=== PATIENT | male | born 1945 | race Caucasian/White ===

== ENCOUNTER 2018-03-10 07:57 | Inpatient (IN) ==
--- NOTE | 2018-01-05 12:28 | Anesthesiology Consultation ---
Date of Service January 05, 2018 Assessment & Plan (1) Encounter for pre-operative examination: Chart Review Chart Review: Acceptable Risk for Surgery and Patient seen in Pre Admission Testing Consults Requested none Teaching & Discussion Pre-Anesthesia Teaching/Discussion Notes: Instructed NPO after midnight before surgery,except medications with 15 cc of water. Medication instructions provided according to the PAT guidelines. Additional Notes Cleared if PCP reviews EKG and says that it is consistent with old ones. Note sent to PCP. Update: These are new findings. Pt scheduled for stress test on 01/14. Update: Patients surgery is cancelled so that patient can undergo cardiac workup. Can be rescheduled at a later date if desired once cleared from a cardiac standpoint. History Surgery Operation Date: 01/15/18 11:55 Proposed Procedures p L2-L5 Decompression and Fusion - Pineda Amanda DO Height/Weight Height: 5 ft 10 in Weight: 106.3 kg Allergies Allergy/AdvReac Type Severity Reaction Status Date / Time No Known Allergies Allergy Verified 12/30/17 12:05 Medications Home Medications Medication Instructions Recorded Confirmed Last Taken amlodipine 10 mg PO QAM 12/30/17 12/30/17 12/30/17 aspirin [Aspir-81] 81 mg PO QPM 12/30/17 12/30/17 12/29/17 atorvastatin 10 mg PO QPM 12/30/17 12/30/17 12/29/17 canagliflozin [Invokana] 300 mg PO QAM 12/30/17 12/30/17 12/30/17 ergocalciferol (vitamin D2) 50,000 unit PO UD 12/30/17 12/30/17 Unknown [Vitamin D2] glipizide 10 mg PO QAM 12/30/17 12/30/17 12/30/17 hydrochlorothiazide 25 mg PO QAM 12/30/17 12/30/17 12/30/17 insulin detemir U-100 20 unit SUBCUT HS 12/30/17 12/30/17 12/29/17 irbesartan 300 mg PO HS 12/30/17 12/30/17 12/29/17 metformin 1,000 mg PO BID 12/30/17 12/30/17 12/30/17 metoprolol succinate 50 mg PO QAM 12/30/17 12/30/17 12/30/17 multivitamin [Multiple Vitamins] 1 tab PO QAM 12/30/17 12/30/17 12/30/17 vitamin F59-gmxgv acid 1 dose PO QPM 12/30/17 12/30/17 12/29/17 Past Medical History Medical History Diabetes mellitus, type 2 History of colon cancer Dx in 2010. Had hemicolectomy and chemo. Currently in remission. History of stomach ulcers Hyperlipidemia Hypertension Osteoarthritis Spinal stenosis LUMBAR Past Surgical History Surgical History History of anesthesia reaction WOKE UP EARLY WITH CATARACT PROCEDURE AND COLONOSCOPY ([facility] COLONOSCOPY/DR EL FOURNIER CATARACTS) History of hemicolectomy Hx of appendectomy Hx of bilateral cataract extraction Hx of cardiac cath 1992/CHEST PAIN/NO FINDINGS Hx of colonoscopy Past Anesthesia History No Hx of Anesthesia Complications (Did wake up early during sedation procedures. ) No family history of anesthesia complications. History of PONV No Motion Sickness Screening History of Motion Sickness: Yes ([place] on [place] boats on the ocean) Social History Smoking Status: Former smoker (Smoked 2 ppd x 30+ years) tobacco type: cigarettes Do You Dip or Chew Tobacco: No ([id number]) Smoking End Date: QUIT 1993 Hx Alcohol Use: Yes Alcohol type: beer alcohol intake frequency: 3 or more drinks per day Alcohol Intake Frequency Comment: 4-6 PER DAY Hx Substance Use: No substance use type: does not use Exercise / Class Metabolic Activity II 4-5 Yardwork/Stairs/Walk up hill (Limited because of back pain. 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 Denies CP or SOB. Able to climb FOS without difficulty. ) Review of Systems Patient denies chest pain, shortness of breath, dyspnea on exertion, reflux, cough, wheezing, palpitations. Physical Exam Vital Signs BP: 131/73 P: 86 R: 16 T: 98.4 SPO2: 97% on RA ENMT external ear and nose normal, oropharynx normal Thyromental Distance: < 3.5 Finger Breadths (3) Mallampati Class: III Mouth / Teeth: 2 1. Upper and Lower Dentures Throat: uvula midline Neck normal visual inspection and trachea midline Respiratory normal respiratory effort, lungs clear to auscultation Cardiovascular Rate/Rhythm: regular rate and regular rhythm Heart Sounds: no murmur Vessels: no carotid bruit Psychiatric A+Ox3, euthymic affect Testing Laboratory Results 01/05/18 13:24 01/05/18 13:24 Blood Type A Positive 01/05/18 13:24 Antibody Screen NEGATIVE 01/05/18 13:24 PT 10.0 Seconds (9.0-12.0) 01/05/18 13:24 INR 1.0 (0.9-1.1) 01/05/18 13:24 APTT 26.0 Seconds (21.0-31.0) 01/05/18 13:24 Urine Color Yellow 01/05/18 13:24 Urine Appearance Clear (Clear) 01/05/18 13:24 Urine pH 5.5 (4.5-7.5) 01/05/18 13:24 Ur Specific [place] 1.025 (1.000-1.030) 01/05/18 13:24 Urine Protein Negative (Negative) 01/05/18 13:24 Urine Glucose (UA) 3+ (Negative) H 01/05/18 13:24 Urine Ketones Negative (Negative) 01/05/18 13:24 Urine Nitrite Negative (Negative) 01/05/18 13:24 Ur Leukocyte Esterase Negative (Negative) 01/05/18 13:24 Electrocardiogram Date: 01/05/18 Sinus rhythm @ 85 bpm with 1st degree AV block. T wave abnormality, consider inferior ischemia. Chest X-Ray Date: 01/05/18 Findings: + NAD
--- NOTE | 2018-01-05 12:34 | PAT Medication Instructions ---
Medication Instructions Date of Service January 05, 2018 Home Medications amlodipine 10 mg PO QAM aspirin [Aspir-81] 81 mg PO QPM atorvastatin 10 mg PO QPM canagliflozin [Invokana] 300 mg PO QAM ergocalciferol (vitamin D2) 50,000 unit PO DIRECTED glipizide 10 mg PO QAM hydrochlorothiazide 25 mg PO QAM insulin detemir U-100 20 unit SUBCUT HS irbesartan 300 mg PO HS metformin 1,000 mg PO BID metoprolol succinate 50 mg PO QAM multivitamin [Multiple Vitamins] 1 tab PO QAM vitamin D84-wglkb acid 1 dose PO QPM Check with MD/Surgeon-instructions aspirin [Aspir-81] 81 mg PO QPM Hold the morning of surgery ergocalciferol (vitamin D2) 50,000 unit PO DIRECTED glipizide 10 mg PO QAM hydrochlorothiazide 25 mg PO QAM canagliflozin [Invokana] 300 mg PO QAM metformin 1,000 mg PO BID multivitamin [Multiple Vitamins] 1 tab PO QAM Take morning of surgery Take with a sip of water, OTHERWISE NOTHING TO EAT OR DRINK AFTER MIDNIGHT: amlodipine 10 mg PO QAM metoprolol succinate 50 mg PO QAM Take evening before surgery atorvastatin 10 mg PO QPM insulin detemir U-100 20 unit SUBCUT HS irbesartan 300 mg PO HS metformin 1,000 mg PO BID vitamin D22-qivgj acid 1 dose PO QPM Other Notes If you have any questions please call us at [phone] or [phone] or [phone] or [phone]
--- NOTE | 2018-01-05 13:56 | XRay Report ---
XR chest Pre-admission PA/Lat CLINICAL HISTORY: Preoperative chest COMPARISON STUDY: No previous studies for comparison. FINDINGS: The cardiac and mediastinal contours are normal. There is no evidence of focal pulmonary co nsolidation. There is no evidence of failure. No pleural effusions are visualized.[ IMPRESSION: No active disease in the chest. Electronically signed by: Luis Contreras M.D. 01/05/2018 1:54 PM
[2018-01-05 14:25] LABS: Basophils # (auto) 0.02 K/uL (0-0.2); Basophils % (auto) 0.3 %; Eosinophils # (auto) 0.17 K/uL (0-0.5); Eosinophils % (auto) 2.8 %; Hematocrit (blood only) 43.8 % (42-52); Hemoglobin 14.6 g/dL (14.0-18.0); Immature Granulocytes # (auto) 0.01 K/uL (0.00-0.02); Immature Granulocytes % (auto) 0.2 %; Lymphocytes # (auto) 1.85 K/uL (1.2-3.4); Lymphocytes % (auto) 30.5 %; Mean Corpuscular Hgb Conc 33.3 g/dL (32-36); Mean Corpuscular Volume 92.2 fL (80-100); Mean Platelet Volume 10.1 fL (7.4-10.4); Monocytes # (auto) 0.68 K/uL (0.11-0.59); Monocytes % (auto) 11.2 %; Neutrophils # (auto) 3.33 K/uL (1.4-6.5); Platelet Count 191 K/uL (130-400); RDW Coefficient of Variation 13.6 % (11.5-14.5); RDW Standard Deviation 46.1 fL (36.4-46.3); Red Blood Count 4.75 M/uL (4.7-6.1); White Blood Count 6.06 K/uL (4.8-10.8)
[2018-01-05 14:26] LABS: BUN Creatinine Ratio 14.2 (10-20); Calcium 8.9 mg/dl (8.5-10.1); Creatinine Clr Calc Pharmacy 56.6 ml/min; Est GFR (African American) 55.8; Est GFR (Non-African American) 48.2; Potassium 4.5 mmol/L (3.5-5.1)
[2018-01-05 14:32] LABS: Appearance Urine Clear (Clear); Bilirubin Urine Negative (Negative); Color Urine Yellow; Glucose Urine UA 3+ (Negative); Ketones Urine Negative (Negative); Leukocyte Esterase Urine Negative (Negative); Nitrite Urine Negative (Negative); Protein Urine Negative (Negative); Specific Gravity Urine 1.025 (1.000-1.030); Urobilinogen Urine Negative (Negative); pH Urine 5.5 (4.5-7.5)
[~2018-03-10 07:57] MED LIST: ACETAMINOPHEN 500 MG TAB PO SCH; CEFAZOLIN 2000MG 2,000 MG/15 ML SYR IV SCH; CeleBREX 200 MG CAP PO SCH; GABAPENTIN 300 MG PO SCH; LR 15ML/HR IV SCH
[2018-03-10] MEDS ORDERED: MIDAZOLAM HCL 1 MG/ML 2ML VIAL ONE (08:10)
[2018-03-10] MEDS ORDERED: HYDROmorphone INJ 2 MG/ML SYR/VIAL ONE ×3 (08:11→10:49)
[2018-03-10] MEDS ORDERED: fentaNYL citrate 100 MCG/2 ML VIAL ONE ×7 (08:11→12:37)
[2018-03-10 08:57] LABS: Basophils # (auto) 0.02 K/uL (0-0.2); Basophils % (auto) 0.3 %; Eosinophils # (auto) 0.27 K/uL (0-0.5); Eosinophils % (auto) 4.1 %; Hematocrit (blood only) 44.8 % (42-52); Hemoglobin 15.1 g/dL (14.0-18.0); Lymphocytes # (auto) 1.81 K/uL (1.2-3.4); Lymphocytes % (auto) 27.7 %; Mean Platelet Volume 9.6 fL (7.4-10.4); Monocytes # (auto) 0.78 K/uL (0.11-0.59); Monocytes % (auto) 11.9 %; Neutrophils # (auto) 3.66 K/uL (1.4-6.5); Platelet Count 177 K/uL (130-400); RDW Coefficient of Variation 13.4 % (11.5-14.5); RDW Standard Deviation 45.1 fL (36.4-46.3); Red Blood Count 4.87 M/uL (4.7-6.1); White Blood Count 6.54 K/uL (4.8-10.8)
[2018-03-10] MEDS ORDERED: NEOSTIGMINE METHYLSULFATE 1 MG/ML 10ML VIAL ONE (09:04)
[2018-03-10] MEDS ORDERED: PROPOFOL IV EMULSION 10 MG/ML 20 ML VIAL IV ONE (09:04)
[2018-03-10] MEDS ORDERED: DEXAMETHASONE SOD INJ 4 MG/ML VIAL ONE (09:04)
[2018-03-10] MEDS ORDERED: LARYING-O-JET KIT (LTA) ONE (09:04)
[2018-03-10] MEDS ORDERED: GLYCOPYRROLATE 0.2 MG/ML VIAL ONE (09:04)
[2018-03-10] MEDS ORDERED: LIDOCAINE HCL 2% 2 ML VIAL/AMP(20MG/ML) INFIL ONE (09:04)
[2018-03-10] MEDS ORDERED: ONDANSETRON INJ 2 MG/ML 2 ML VIAL ONE (09:04)
[2018-03-10 09:06] LABS: Partial Thromboplastin Time 25.9 Seconds (21.0-31.0); Prothrombin Time 10.1 Seconds (9.0-12.0)
[2018-03-10 09:07] LABS: Mean Corpuscular Hgb Conc 33.7 g/dL (32-36)
--- NOTE | 2018-03-10 09:09 | History & Physical Bridge Note ---
Date of Service March 10, 2018 History & Physical Bridge Note I have examined the patient, reviewed the History & Physical and in the interval since the performance of the History & Physical I have noted the following changes of clinical significance: no changes noted
--- NOTE | 2018-03-10 09:10 | History & Physical Report ---
Date of Service March 10, 2018 Assessment & Plan (1) Neurogenic claudication due to lumbar spinal stenosis: Decompression and fusion L2-5 Present on Admission?: Yes History of Present Illness Chief Complaint: Back and leg pain Primary Care Provider: Atiya Lopez MD This is a 72-year-old male presents with chronic persistent back and leg pain. After failing extensive course of nonoperative care is here for surgical intervention. Allergies Allergy/AdvReac Type Severity Reaction Status Date / Time No Known Allergies Allergy Verified 03/10/18 08:33 Home Medications Home Medications Medication Instructions Recorded Confirmed Type amlodipine 10 mg PO QAM 18 02/18/18 History aspirin [Aspir-81] 81 mg PO QPM 12/30/17 03/10/18 History atorvastatin 10 mg PO QPM 12/30/17 02/18/18 History canagliflozin [Invokana] 300 mg PO QAM 12/30/17 03/10/18 History ergocalciferol (vitamin D2) 50,000 unit PO UD 12/30/17 03/10/18 History [Vitamin D2] glipizide 10 mg PO QAM 12/30/17 03/10/18 History hydrochlorothiazide 25 mg PO QAM 18 03/10/18 History insulin detemir U-100 20 unit SUBCUT HS 12/30/17 03/10/18 History irbesartan 300 mg PO HS 12/30/17 03/10/18 History metformin 1,000 mg PO BID 12/30/17 03/10/18 History metoprolol succinate 100 mg PO QAM 12/30/17 03/10/18 History multivitamin [Multiple Vitamins] 1 tab PO QAM 12/30/17 03/10/18 History vitamin N26-macci acid 1 dose PO QPM 12/30/17 03/10/18 History Past Med/Surg History Social History Current Living Situation: Spouse Other Information That Helps Us Care for You: No Feels Safe at Home: Yes Safety Concerns: Feels Safe At This Time Smoking Status: Former smoker Tobacco Type: cigarettes Do You Dip or Chew Tobacco: No ([id number]) Smoking End Date: QUIT 1993 Second Hand Exposure: No Tobacco Cessation Education Requested by Patient: No Hx Alcohol Use: Yes Alcohol type: beer Alcohol Intake Frequency: 3 or more drinks per day Hx Substance Use: No Beliefs That Will Affect Care: Judaism Judaism Beliefs: RESTORATION Preferred Language: Greek Communication Ability: Effective Communication Ability Comment: HARD OF HEARING Insurance Territory Manager Required: No Physical Exam 2 Vital Signs (Past 24 Hours): Last Vital Signs Temp 36.9 C 03/10/18 08:46 Pulse 83 03/10/18 08:46 Resp 16 03/10/18 08:46 BP 169/70 H 03/10/18 08:46 Pulse Ox 96 03/10/18 08:46 Results & Data Medications Administered Acetaminophen (Tylenol) 1,000 mg PO PREOP COURTNEY Stop: 03/10/18 18:00 Last Admin: 03/10/18 09:02 Dose: 1,000 mg Celecoxib (Celebrex) 200 mg PO PREOP COURTNEY Stop: 03/10/18 18:00 Last Admin: 03/10/18 09:02 Dose: 200 mg Gabapentin (Neurontin) 300 mg PO PREOP COURTNEY Stop: 03/10/18 18:00 Last Admin: 03/10/18 09:02 Dose: 300 mg Lactated Ringer's (Lr) 1,000 mls @ 15 mls/hr IV .Q24H COURTNEY Stop: 03/11/18 05:59 Last Admin: 03/10/18 09:03 Dose: 15 mls/hr
[2018-03-10 09:13] LABS: BUN Creatinine Ratio 23.7 (10-20); Calcium 9.5 mg/dl (8.5-10.1); Creatinine Clr Calc Pharmacy 56.9 ml/min; Est GFR (African American) 56.8; Potassium 4.4 mmol/L (3.5-5.1)
[2018-03-10] MEDS ORDERED: PROMETHAZINE HCL 6.25 MG in SODIUM CHLORIDE 0.9% 50 ML IV PRN (09:16)
[2018-03-10] MEDS ORDERED: ePHEDrine sulfate 50 MG/ML AMP IV PRN (09:16)
[2018-03-10] MEDS ORDERED: fentaNYL citrate 100 MCG/2 ML VIAL IV PRN (09:16)
[2018-03-10] MEDS ORDERED: ATROPINE SULFATE 0.1 MG/ML 5ML SYR IV PRN (09:16)
[2018-03-10] MEDS ORDERED: ONDANSETRON INJ 2 MG/ML 2 ML VIAL IV PRN ×2 (09:16→14:22)
[2018-03-10] MEDS ORDERED: HYDROmorphone INJ 2 MG/ML SYR/VIAL IV PRN (09:16)
[2018-03-10] MEDS ORDERED: BACITRACIN INJ 50,000 UNIT VIAL ONE (09:28)
[2018-03-10] MEDS ORDERED: BUPIVACAINE/EPINEPHRINE 0.5% MPF 1:200,000 30 ML VIAL ONE (09:28)
[2018-03-10] MEDS ORDERED: FLOSEAL HEMOSTATIC MATRIX 10ML TOP ONE (10:20)
[2018-03-10] MEDS ORDERED: ALBUMIN HUMAN 5% 12.5 GM/250 ML VIAL IV ONE (10:49)
[2018-03-10] MEDS ORDERED: ePHEDrine sulfate 50 MG/ML SYR ONE (10:57)
[2018-03-10] MEDS ORDERED: PHENYLEPHRINE 100MCG/ML 5ML SYR ONE (10:57)
[2018-03-10] MEDS ORDERED: ePHEDrine sulfate 50 MG/ML AMP ONE (10:57)
--- NOTE | 2018-03-10 12:37 | Fluoroscopy Report ---
FL lumbar spine 2-3V CLINICAL HISTORY: L2-L5 DECOMPRESSION AND FUSION COMPARISON STUDY: None FLUOROSCOPY TIME: 25 seconds. NUMBER OF FLUOROSCOPIC IMAGES: 2 FINDINGS: There are postsurgical changes of L3-4, and L4-5 discectomies and interbody fusions. There is posterior spinal fixation with L2-L5 pedicle screws with adjoining spinal rods IMPRESSION: Intraoperative findings as described above. Electronically signed by: Luis Contreras M.D. 03/10/2018 12:35 PM
--- NOTE | 2018-03-10 12:42 | Operative Report ---
Post Operative Report Date of Surgery March 10, 2018 Pre & Post Diagnosis Operation Date: 01/15/18 11:55 <No data on this case meets the specified criteria> Operation Date: 03/10/18 10:05 Pre-Op Diagnosis: Lumbar spinal stenosis with neurogenic claudication Post-Op Diagnosis: Same Procedure Operation Date: 01/15/18 11:55 <No data on this case meets the specified criteria> Operation Date: 03/10/18 10:05 Actual Procedures #1 lumbar decompression medial facetectomies foraminotomies L2-3 L3-4 L4-5 per # 2 posterior spinal fusion L2-3 L3-4 L4-5 per #3 placement posterior segmental instrumentation L2-3 L3-4 L4-5. 4 interbody fusion L3-4 L4-5. #5 placement of titanium 12 x 26 mm cage L3-4 15 x 26 mm cage L4-5. #6 placement of local autograft in the posterior lateral gutters. #7 placement Feese collagen sponge mass graft and posterior gutters and ostomy up in interbody space. Surgeon Pineda Amanda DO Gettering Operator None Estimated Blood Loss 700 Findings Consistent with Post-Op Diagnosis Specimens None Description of Procedure Patient was met with preoperatively case discussed all questions addressed. After informed consent obtained patient was taken to the operative suite underwent intubation and placed in a prone position on the Ike table on top of the Kirk frame. All bony prominences well-padded eyes inspected to ensure no external pressure placed upon up at this point the lumbar spine was prepped and draped in normal sterile fashion. Sharp dissection with the assistance of Bovie cautery was performed down to and exposing the lamina and transverse process of L2 L3-L4-L5 bilaterally. From a caudal to cephalad fashion complete laminectomy of L4-L5 3 and L2 including medial facetectomies foraminotomies addressing severe stenosis. Pedicle screws were then placed in L2 L3-L4-L5 bilaterally with assistance of fluoroscopy and the purposes nahid placed. The transforaminal approach and a right complete discectomy of L4-5 was performed in plate coated to subcortical bleeding bone and a 15 x 26 mm titanium cage filled with osteo-amp bone graft tapped in position. Then proceeded to the L3- 4 level again through a transforaminal approach on the right complete discectomy performed in plate coated to subcortical mean bone and a 12 x 26 mm titanium cage filled with ostium bone graft tapped in position. The rods were then locked into final position bilaterally. The transverse process of L2 L3-L4 -L5 bur to subcortical bone. Infuse collagen sponge mass graft local autograft placed in the posterior gutters. 15 round BLESSING drain inserted. Incision was then closed with 1 Vicryl fascia 2-0 Vicryl subcutaneously 4-0 Vicryl for Fransen closure Steri-Strip sterile dressings placed. Patient will continue to PACU stable condition. I attest to the content of the Intraoperative Record and any orders documented therein. Any exceptions are noted below.
--- NOTE | 2018-03-10 13:39 | Anesthesiology Progress Note ---
Date of Service March 10, 2018 Anesthesia Post Procedure Vital Signs Vital Signs: Temp Pulse Pulse Resp BP BP Pulse Ox 03/10/18 13:30 72 16 137/57 L 97 03/10/18 13:20 72 14 121/65 97 03/10/18 13:10 73 15 133/77 97 03/10/18 13:00 71 12 124/65 97 03/10/18 12:52 36.0 C L 75 12 118/57 L 97 03/10/18 08:46 36.9 C 83 16 169/70 H 96 Pain Intensity Bilateral Lower Back: Pain Intensity: 5 Back: Pain Intensity: 0 Notes Mental Status: alert / awake / arousable Patient Amnestic to Procedure: Yes Nausea / Vomiting: adequately controlled Pain: adequately controlled Airway Patency, RR, SpO2: stable & adequate BP & HR: stable & adequate Hydration State: stable & adequate Anesthetic Complications: no major complications apparent
[2018-03-10] MEDS ORDERED: ROCURONIUM BROMIDE 10 MG/ML 5 ML VIAL ONE (14:13)
[2018-03-10] MEDS ORDERED: ACETAMINOPHEN 500 MG TAB PO PRN (14:22)
[2018-03-10] MEDS ORDERED: TRAMADOL HCL 50 MG TABLET PO PRN (14:22)
[2018-03-10] MEDS ORDERED: ACETAMINOPHEN 1,000 MG/100 ML VIAL IV PRN (14:22)
[2018-03-10] MEDS ORDERED: ALUMINUM/MAGNESIUM SUSP 30 ML UDC PO PRN (14:22)
[2018-03-10] MEDS ORDERED: DO NOT ADMINISTER PNEUMOCOCCAL VACCINE PRN (14:22)
[2018-03-10] MEDS ORDERED: PROMETHAZINE HCL 12.5 MG in SODIUM CHLORIDE 0.9% 50 ML IV PRN (14:22)
[2018-03-10] MEDS ORDERED: METOCLOPRAMIDE HCL INJ 5 MG/ML 2 ML VIAL IV PRN (14:22)
[2018-03-10] MEDS ORDERED: ONDANSETRON 4 MG TAB PO PRN (14:22)
[2018-03-10] MEDS ORDERED: SOD PHOSPHATE/SOD BIPHOSPHATE ENEMA 132 ML BTL PR PRN (14:22)
[2018-03-10] MEDS ORDERED: DO NOT ADMINISTER FLU VACCINE PRN (14:22)
[2018-03-10] MEDS ORDERED: MAGNESIUM HYDROXIDE SUSP 30 ML UDC PO PRN (14:22)
[2018-03-10] MEDS ORDERED: BISACODYL 10 MG SUPP PR PRN (14:22)
[2018-03-10] MEDS ORDERED: LORazepam 0.5 MG TAB PO PRN (14:22)
[2018-03-10] MEDS ORDERED: HYDROmorphone INJ 0.5 MG/0.5 ML SYR IV PRN (14:22)
[2018-03-10] MEDS ORDERED: LORazepam 0.5 MG/1 ML VIAL IV PRN (14:22)
[2018-03-10] MEDS ORDERED: FAMOTIDINE 20 MG TAB PO PRN (14:22)
[2018-03-10] MEDS ORDERED: KETOROLAC TROMETHAMINE 15 MG/ML VIAL IV SCH (16:00)
[2018-03-10] MEDS: CEFAZOLIN 2000MG 2,000 MG/15 ML SYR IV SCH ×2 (16:03→23:58)
--- NOTE | 2018-03-10 18:46 | Consultation ---
Date of Consultation March 10, 2018 Assessment & Plan (1) Neurogenic claudication due to lumbar spinal stenosis: Status post L2 through L5 decompression and fusion by orthopedic spine surgery on 03/10 -Postoperative management as per orthopedics -Pain control, antiemetics, bowel regimen as per primary team's orders -Recommend DC of all NSAIDs given chronic kidney disease -There was a 700 mL EBL-will assess hemoglobin level in the morning (2) Hyperlipidemia: Stable -Continue atorvastatin 10 mg daily (3) Hypertension: Blood pressures mildly elevated after surgery likely secondary to pain, now controlled -Continue amlodipine 10 mg daily -Continue metoprolol succinate 100 mg once daily -Hold Avapro and HCTZ until renal function is reassessed in the morning (4) Diabetes mellitus, type 2: On Levemir, Invokana, glipizide, and metformin at home -Hold home glipizide and metformin, as well as Invokana while inpatient until established p.o. intake is sufficient and renal function reassessed -Continue Levemir 20 units at bedtime -Start sliding scale insulin with carbohydrate coverage and Accu-Cheks q. before meals at bedtime -Check hemoglobin A1c in the morning (5) Spinal stenosis: Now status post lumbar fusion and decompression as above (6) Osteoarthritis: Of the knees -Pain control as tolerated (7) History of colon cancer: Noted, with history of hemicolectomy and chemotherapy in 2010, currently in remission (8) Peripheral neuropathy: Stable -Not currently on medication for this (9) CKD stage 3 due to type 2 diabetes mellitus: Creatinine here around baseline at 1.4, secondary to diabetes mellitus -Hold Avapro and HCTZ until renal function is reassessed tomorrow -Hold Invokana as well as this can have effects on renal function -Follow BMP in the morning (10) BPH (benign prostatic hyperplasia): Does not appear to be on medications for this at home. Reports he had a cystoscopy in the past and everything was normal. He has not had a prostate biopsy. He does usually have nocturia 2 times per night -Observe for lower urinary tract symptoms or urinary retention while here after Woo catheter is removed (11) Vitamin B12 deficiency: Continue home B12 supplementation (12) CAD (coronary artery disease), [place] coronary artery: Had abnormal stress test prior to surgery and had a cardiac catheterization which was with nonobstructive CAD-notable for intermediate stenosis in the LAD at 65% from the proximal LAD to the mid LAD, 25% stenosis in the RCA, and 25% stenosis of the ostial to proximal circumflex. Adult Basic Studies Teacher recommended maximization of beta oliver therapy prior to surgery and his metoprolol was increased to 100 mg daily. He is asymptomatic with this. -Continue aspirin , statin, beta-oliver -Observe for signs or symptoms of perioperative cardiovascular issues (13) DVT prophylaxis: SCDs Disposition-remain on medical/surgical floor History of Present Illness Reason for Consultation: Medical management Requesting Physician: Pineda Amanda DO Attending Physician: Pineda Amanda DO History of Present Illness This patient is a 72-year-old male with a history of HTN, HL, nonobstructive CAD , DM 2 with neuropathy on long-term insulin, colon cancer, B12 deficiency, vitamin D deficiency, OA of the knees, CKD stage III, PUD, BPH, and lumbar spinal stenosis with neurogenic claudication. He is admitted after having an L2 -L5 discectomy and fusion by orthopedic surgery. The patient reports he is feeling very well, minimal pain in the back. He denies chest pain or shortness of breath, denies abdominal pain or nausea. He was very hungry and ate a good dinner. Allergies Allergy/AdvReac Type Severity Reaction Status Date / Time No Known Allergies Allergy Verified 03/10/18 08:33 Home Medications Home Medications Medication Instructions Recorded Confirmed Type amlodipine 10 mg PO QAM 12/30/17 02/18/18 History aspirin [Aspir-81] 81 mg PO QPM 12/30/17 03/10/18 History atorvastatin 10 mg PO QPM 12/30/17 02/18/18 History canagliflozin [Invokana] 300 mg PO QAM 12/30/17 03/10/18 History ergocalciferol (vitamin D2) 50,000 unit PO UD 12/30/17 03/10/18 History [Vitamin D2] glipizide 10 mg PO QAM 12/30/17 03/10/18 History hydrochlorothiazide 25 mg PO QAM 12/30/17 03/10/18 History insulin detemir U-100 20 unit SUBCUT HS 12/30/17 03/10/18 History irbesartan 300 mg PO HS 12/30/17 03/10/18 History metformin 1,000 mg PO BID 12/30/17 03/10/18 History metoprolol succinate 100 mg PO QAM 12/30/17 03/10/18 History multivitamin [Multiple Vitamins] 1 tab PO QAM 12/30/17 03/10/18 History vitamin [id number] acid 1 dose PO QPM 12/30/17 03/10/18 History Patient History Medical History Vitamin D deficiency CAD (coronary artery disease), [place] coronary artery Peripheral neuropathy CKD stage 3 due to type 2 diabetes mellitus BPH (benign prostatic hyperplasia) Vitamin B12 deficiency Hyperlipidemia Hypertension Diabetes mellitus, type 2 Spinal stenosis LUMBAR Osteoarthritis History of colon cancer Dx in 2010. Had hemicolectomy and chemo. Currently in remission. History of stomach ulcers Surgical History History of anesthesia reaction WOKE UP EARLY WITH CATARACT PROCEDURE AND COLONOSCOPY ([facility] COLONOSCOPY/DR EL FOURNIER CATARACTS) History of cardiac cath 01/26/18 AT [facility]. DR. PUTNAM ([facility] [place]) History of hemicolectomy Hx of appendectomy Hx of bilateral cataract extraction Hx of cardiac cath 1991/CHEST PAIN/NO FINDINGS Hx of colonoscopy Family History Father HTN (hypertension), benign CAD (coronary artery disease), [place] coronary artery Brother CAD (coronary artery disease), [place] coronary artery Mother Diabetes mellitus CHF (congestive heart failure) Social History Current Living Situation: Spouse Other Information That Helps Us Care for You: No Feels Safe at Home: Yes Safety Concerns: Feels Safe At This Time Smoking Status: Former smoker Tobacco Type: cigarettes Do You Dip or Chew Tobacco: No ([id number]) Smoking End Date: QUIT 1993 Second Hand Exposure: No Tobacco Cessation Education Requested by Patient: No Hx Alcohol Use: Yes Alcohol type: beer Alcohol Intake Frequency: 3 or more drinks per day Hx Substance Use: No Beliefs That Will Affect Care: Sabianist Sabianist Beliefs: JEHOVAH'S WITNESS Preferred Language: Kyrgyz Communication Ability: Effective Communication Ability Comment: HARD OF HEARING Amusement Park 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 Required: No Review of Systems A 14 point review of systems was reviewed and was otherwise negative Physical Exam 2 Vital Signs (Past 24 Hours): Last Vital Signs Temp 36.6 C 03/10/18 17:21 Pulse 83 03/10/18 17:21 Resp 18 03/10/18 17:21 BP 128/63 03/10/18 17:21 Pulse Ox 92 03/10/18 17:21 Constitutional: WD/WN, vitals as above Eyes: PERRL, conjunctivae normal, anicteric sclerae ENMT: external ear and nose normal, oropharynx normal Neck: trachea midline, no thyromegaly Respiratory: normal respiratory effort, lungs clear to auscultation Cardiovascular: RRR, no murmur, no edema Gastrointestinal (Abdomen): normal bowel sounds, soft, nontender, no hepatosplenomegaly Musculoskeletal: Extremities: extremities normal to inspection; no cyanosis and no clubbing Skin: no rashes, warm and dry Neurologic: moves all extremities and awake; no focal motor deficits Psychiatric: A+Ox3, euthymic affect Genitourinary: Woo catheter in place with clear yellow urine Results & Data Laboratory Results 03/10/18 03/10/18 03/10/18 Range/Units 17:19 13:02 08:46 WBC (4.8-10.8) K/uL RBC (4.7-6.1) M/uL Hgb (14.0-18.0) g/dL Hct (42-52) % MCV (80-100) fL MCH (25-34) pg MCHC (32-36) g/dL RDW Std Deviation (36.4-46.3) fL RDW Coeff of Danna (11.5-14.5) % Plt Count (130-400) K/uL MPV (7.4-10.4) fL Immature Gran % (Auto) % Neut % (Auto) % Lymph % (Auto) % [place] % (Auto) % Eos % (Auto) % Baso % (Auto) % Immature Gran # (Auto) (0.00-0.02) K/uL Neut # (Auto) (1.4-6.5) K/uL Lymph # (Auto) (1.2-3.4) K/uL Tama # (Auto) (0.11-0.59) K/uL Eos # (Auto) (0-0.5) K/uL Baso # (Auto) (0-0.2) K/uL PT (9.0-12.0) Seconds INR (0.9-1.1) APTT (21.0-31.0) Seconds PTT Ratio Sodium 139 (136-145) mmol/L Potassium 4.4 (3.5-5.1) mmol/L Chloride 105 (98-107) mmol/L Carbon Dioxide 25 (21-32) mmol/L Anion Gap 9.0 (3-11) BUN 34 H (7-18) mg/dl Creatinine 1.42 H (0.6-1.4) mg/dl Est Cr Clr Drug Dosing 56.9 ml/min Est GFR ( Amer) 56.8 Est GFR (Non-Af Amer) 49.0 BUN/Creatinine Ratio 23.7 H (10-20) Glucose 180 H (70-99) mg/dl POC Glucose 240 H 190 H (70-99) Calcium 9.5 (8.5-10.1) mg/dl Blood Type Antibody Screen Crossmatch 03/10/18 03/10/18 03/10/18 Range/Units 08:46 08:46 08:46 WBC 6.54 (4.8-10.8) K/uL RBC 4.87 (4.7-6.1) M/uL Hgb 15.1 (14.0-18.0) g/dL Hct 44.8 (42-52) % MCV 92.0 (80-100) fL MCH 31.0 (25-34) pg MCHC 33.7 (32-36) g/dL RDW Std Deviation 45.1 (36.4-46.3) fL RDW Coeff of Danna 13.4 (11.5-14.5) % Plt Count 177 (130-400) K/uL MPV 9.6 (7.4-10.4) fL Immature Gran % (Auto) 0.0 % Neut % (Auto) 56.0 % Lymph % (Auto) 27.7 % [place]ama % (Auto) 11.9 % Eos % (Auto) 4.1 % Baso % (Auto) 0.3 % Immature Gran # (Auto) 0.00 (0.00-0.02) K/uL Neut # (Auto) 3.66 (1.4-6.5) K/uL Lymph # (Auto) 1.81 (1.2-3.4) K/uL Tama # (Auto) 0.78 H (0.11-0.59) K/uL Eos # (Auto) 0.27 (0-0.5) K/uL Baso # (Auto) 0.02 (0-0.2) K/uL PT 10.1 (9.0-12.0) Seconds INR 1.0 (0.9-1.1) APTT 25.9 (21.0-31.0) Seconds PTT Ratio 1.0 Sodium (136-145) mmol/L Potassium (3.5-5.1) mmol/L Chloride (98-107) mmol/L Carbon Dioxide (21-32) mmol/L Anion Gap (3-11) BUN (7-18) mg/dl Creatinine (0.6-1.4) mg/dl Est Cr Clr Drug Dosing ml/min Est GFR ( Amer) Est GFR (Non-Af Amer) BUN/Creatinine Ratio (10-20) Glucose (70-99) mg/dl POC Glucose (70-99) Calcium (8.5-10.1) mg/dl Blood Type A Positive Antibody Screen NEGATIVE Crossmatch See Detail 03/10/18 Range/Units 08:35 WBC (4.8-10.8) K/uL RBC (4.7-6.1) M/uL Hgb (14.0-18.0) g/dL Hct (42-52) % MCV (80-100) fL MCH (25-34) pg MCHC (32-36) g/dL RDW Std Deviation (36.4-46.3) fL RDW Coeff of Danna (11.5-14.5) % Plt Count (130-400) K/uL MPV (7.4-10.4) fL Immature Gran % (Auto) % Neut % (Auto) % Lymph % (Auto) % [place]ama % (Auto) % Eos % (Auto) % Baso % (Auto) % Immature Gran # (Auto) (0.00-0.02) K/uL Neut # (Auto) (1.4-6.5) K/uL Lymph # (Auto) (1.2-3.4) K/uL Tama # (Auto) (0.11-0.59) K/uL Eos # (Auto) (0-0.5) K/uL Baso # (Auto) (0-0.2) K/uL PT (9.0-12.0) Seconds INR (0.9-1.1) APTT (21.0-31.0) Seconds PTT Ratio Sodium (136-145) mmol/L Potassium (3.5-5.1) mmol/L Chloride (98-107) mmol/L Carbon Dioxide (21-32) mmol/L Anion Gap (3-11) BUN (7-18) mg/dl Creatinine (0.6-1.4) mg/dl Est Cr Clr Drug Dosing ml/min Est GFR ( Amer) Est GFR (Non-Af Amer) BUN/Creatinine Ratio (10-20) Glucose (70-99) mg/dl POC Glucose 194 H (70-99) Calcium (8.5-10.1) mg/dl Blood Type Antibody Screen Crossmatch _ (1) Diabetes mellitus, type 2 Chronic kidney disease stage: stage 3 (moderate) Diabetes mellitus complication detail: with chronic kidney disease Diabetes mellitus complication status: with kidney complications Diabetes mellitus termite technician insulin use: with shelter use Qualified Code(s): E11.22 - Type 2 diabetes mellitus with diabetic chronic kidney disease; N18.3 - Chronic kidney disease, stage 3 (moderate); Z79.4 - termite inspector (current) use of insulin (2) Hyperlipidemia Hyperlipidemia type: unspecified Qualified Code(s): E78.5 - Hyperlipidemia, unspecified (3) CAD (coronary artery disease), [place] coronary artery Associated angina: without angina [place] vs. transplanted heart: [place] heart Qualified Code(s): I25.10 - Atherosclerotic heart disease of [place] coronary artery without angina pectoris (4) Hypertension Hypertension type: essential hypertension Qualified Code(s): I10 - Essential (primary) hypertension
[2018-03-10] MEDS ORDERED: CARBOHYDRATES FOR HYPOGLYCEMIA PO PRN (18:50)
[2018-03-10] MEDS ORDERED: DEXTROSE 50% 50 ML SYRINGE IV PRN (18:50)
[2018-03-10] MEDS ORDERED: GLUCAGON FOR INJ 1 MG VIAL SQ PRN (18:50)
[2018-03-10] MEDS ORDERED: GLUCOSE 40% GEL 15 GM TUBE PO PRN (18:50)
[2018-03-10] MEDS ORDERED: GLUCOSE 10 TABS/TUBE PO PRN (18:50)
[2018-03-10] MEDS: SODIUM CHLORIDE 0.9% 1000ML 1,000 ML IV SCH (19:27)
[2018-03-10] MEDS: ASPIRIN 81 MG ECTAB PO SCH (20:58)
[2018-03-10] MEDS: ATORVASTATIN 10 MG TAB PO SCH (20:58)
[2018-03-10] MEDS: FOLIC ACID 400 MCG TAB PO SCH (20:58)
[2018-03-10] MEDS: CYANOCOBALAMIN 500 MCG TABLET (VITAMIN B-12) PO SCH (20:59)
[2018-03-10] MEDS: DOCUSATE SODIUM/SENNA 50/8.6MG TAB PO SCH (20:59)
[2018-03-10] MEDS: INSULIN ASPART 100 UNITS/ML 3 ML PEN SC SCH (21:00)
[2018-03-10] MEDS ORDERED: IRBESARTAN 150 MG TAB PO SCH (21:00)
[2018-03-10] MEDS: INSULIN DETEMIR FLEXPEN/FLEX TOUCH 100 UNITS/ML 3ML SQ SCH (21:01)
[2018-03-11] MEDS: SODIUM CHLORIDE 0.9% 1000ML 1,000 ML IV SCH (01:05)
[2018-03-11] MEDS: POLYETHYLENE (MIRALAX) 17 GM PACK PO SCH ×3 (05:34→17:41)
[2018-03-11] MEDS: OXYCODONE HCL IR 5 MG TAB (IMMEDIATE RELEASE) PO PRN ×4 (05:39→21:06)
[2018-03-11 07:11] LABS: Estimated Average Glucose 166 mg/dl
[2018-03-11 07:17] LABS: Basophils # (auto) 0.01 K/uL (0-0.2); Basophils % (auto) 0.1 %; Hematocrit (blood only) 35.5 % (42-52); Hemoglobin 11.5 g/dL (14.0-18.0); Immature Granulocytes # (auto) 0.03 K/uL (0.00-0.02); Immature Granulocytes % (auto) 0.2 %; Lymphocytes # (auto) 1.51 K/uL (1.2-3.4); Lymphocytes % (auto) 11.9 %; Mean Corpuscular Hgb Conc 32.4 g/dL (32-36); Mean Corpuscular Volume 92.4 fL (80-100); Monocytes # (auto) 1.38 K/uL (0.11-0.59); Monocytes % (auto) 10.8 %; Platelet Count 177 K/uL (130-400); RDW Coefficient of Variation 13.8 % (11.5-14.5); RDW Standard Deviation 46.7 fL (36.4-46.3); Red Blood Count 3.84 M/uL (4.7-6.1); White Blood Count 12.73 K/uL (4.8-10.8)
[2018-03-11 07:27] LABS: BUN Creatinine Ratio 23.4 (10-20); Calcium 8.8 mg/dl (8.5-10.1); Creatinine Clr Calc Pharmacy 63.2 ml/min; Est GFR (African American) 64.4; Est GFR (Non-African American) 55.5; Potassium 4.3 mmol/L (3.5-5.1)
[2018-03-11] MEDS ORDERED: glipiZIDE 5 MG TAB PO SCH (07:30)
[2018-03-11] MEDS: INSULIN ASPART 100 UNITS/ML 3 ML PEN SC SCH ×4 (08:56→21:10)
[2018-03-11] MEDS ORDERED: hydroCHLOROthiazide 25 MG TAB PO SCH (09:00)
[2018-03-11] MEDS: METOPROLOL SUCC 50MG EXT REL TAB PO SCH (09:01)
[2018-03-11] MEDS: AMLODIPINE BESYLATE 5 MG TAB PO SCH ×2 (09:01→09:45)
[2018-03-11] MEDS: MULTIVITAMIN TAB PO SCH (09:01)
--- NOTE | 2018-03-11 10:15 | Hospitalist Progress Note ---
Date of Service March 11, 2018 Assessment & Plan (1) Neurogenic claudication due to lumbar spinal stenosis: - S/P L2-L5 decompression/fusion on 03/10 and doing well post-operatively - Postoperative management as per orthopedics - Pain control, antiemetics, bowel regimen as per primary team's orders - EBL of 700 mL - Hgb did decrease from 15.1 to 11.5 however is asymptomatic and no indication for transfusion at this time - will monitor Present on Admission?: Yes (2) Hypertension: - BP controlled with only minimal highs - possible pain response - Amlodipine 10 mg daily; Toprol XL 100 mg daily - Resume Irbesartan 300 mg HS and HCTZ 25 mg daily Present on Admission?: Yes (3) Diabetes mellitus, type 2: - A1c is 7.4 which is acceptable given patient age - Can continue Levemir 20 mg HS - Tolerating diet without issue - Will monitor BSGs ACHS and likely can resume home oral medications tomorrow; maintain SSI at this time -- Takes Glipizide 10 mg daily, Invokana 300 mg daily, and Metformin BID at home Present on Admission?: Yes (4) Peripheral neuropathy: - Stable - No current medical treatment - reports numbness/tingling has improved since surgery but does have some at baseline due to diabetic neuropathy Present on Admission?: Yes (5) CKD stage 3 due to type 2 diabetes mellitus: - Baseline appears to be around 1.4 - currently improved around 1.2 - Continue ARB/HCTZ; Holding oral anti-diabetics - CBC/BMP in AM Present on Admission?: Yes (6) BPH (benign prostatic hyperplasia): - No current medical treatment - H/O cystoscopy which he reports was normal - Reports nocturia x 2 nightly on average - urinating without difficulty at this time Present on Admission?: Yes (7) CAD (coronary artery disease), [place] coronary artery: - Had abnormal stress test prior to surgery - cardiac cath revealed non- obstructive CAD -- notable for intermediate stenosis in the LAD at 65% from the proximal LAD to the mid LAD, 25% stenosis in the RCA, and 25% stenosis of the ostial to proximal circumflex. Carpet Technician recommended maximization of beta oliver therapy prior to surgery and his metoprolol was increased to 100 mg daily. He is asymptomatic with this. - ASA 81 mg daily, statin therapy, and increased BB therapy Present on Admission?: Yes (8) Hyperlipidemia: - Stable - Continue atorvastatin 10 mg daily Present on Admission?: Yes (9) History of colon cancer: - Noted - H/O hemicolectomy and chemotherapy 2010 (current remission) Present on Admission?: No Subjective Reports feeling well today. Is trying to avoid narcotics for pain control. Has been up moving with therapy today and reports feeling ok. Is planning on returning home after admission. Did have a drop from 15 to 11 in Hgb but tolerating this well and asymptomatic. BSGs are much improved today and tolerating a diet without issue. Cr is improved from baseline at 1.28 at this time Reports last BM was on Thursday which is not unusual for him and doesn't feel constipated but has a bowel regimen in place in-house. Constitutional: no fever and no chills Eyes: no worsening vision Ear, Nose, Mouth, Throat: no sore throat, no hoarseness and no dysphagia Respiratory: no cough and no dyspnea Cardiovascular: no chest pain and no palpitations Gastrointestinal: no abdominal pain, no nausea, no vomiting, no constipation and no diarrhea/loose stools Genitourinary (Male): no dysuria Musculoskeletal: + back pain (intermittent); no swelling and no muscle weakness Integumentary: no rash Reports improvement in Numbness/tingling of b/l lower extremities but has baseline neuropathy Physical Exam 2 Vital Signs (Past 24 Hours): Last Vital Signs Temp 37.3 C 03/11/18 07:40 Pulse 88 03/11/18 07:40 Resp 17 03/11/18 07:40 BP 144/76 H 03/11/18 07:40 Pulse Ox 90 03/11/18 07:40 Constitutional: well developed and well nourished; no acute distress and not ill appearing Eyes: + anicteric sclerae ENMT: Ears: no hearing impairment Neck: trachea midline Respiratory: normal respiratory effort, lungs clear to auscultation Cardiovascular: Rate/Rhythm: regular rate and regular rhythm Heart Sounds: no murmur Gastrointestinal (Abdomen): Inspection/Auscultation: normal bowel sounds Percussion/Palpation: abdomen soft; abdomen nontender Musculoskeletal: Head/Neck/Chest: normocephalic and head atraumatic Dressing applied to low back C/D/I awith BLESSING drain present; no edema of b/l lower extremities and good movement to knee flexion and toe movement Skin: no rashes, warm and dry Neurologic: moves all extremities Psychiatric: A+Ox3, euthymic affect _ (1) Hyperlipidemia Hyperlipidemia type: unspecified Qualified Code(s): E78.5 - Hyperlipidemia, unspecified (2) Hypertension Hypertension type: essential hypertension Qualified Code(s): I10 - Essential (primary) hypertension (3) Diabetes mellitus, type 2 Diabetes mellitus assisted insulin use: with keno terminal operator use Diabetes mellitus complication status: with kidney complications Diabetes mellitus complication detail: with chronic kidney disease Diabetic retinopathy severity : Proliferative retinopathy type: Diabetes mellitus macular edema: Laterality: Chronic kidney disease stage: stage 3 (moderate) Qualified Code(s ): E11.22 - Type 2 diabetes mellitus with diabetic chronic kidney disease; N18.3 - Chronic kidney disease, stage 3 (moderate); Z79.4 - [facility] (current) use of insulin (4) CAD (coronary artery disease), [place] coronary artery [place] vs. transplanted heart: [place] heart Associated angina: without angina Qualified Code(s): I25.10 - Atherosclerotic heart disease of [place] coronary artery without angina pectoris
--- NOTE | 2018-03-11 10:16 | Anesthesiology Progress Note ---
Date of Service March 11, 2018 Anesthesia Post Procedure Vital Signs Vital Signs: Temp Pulse Pulse Resp BP BP Pulse Ox 03/11/18 07:40 37.3 C 88 17 144/76 H 90 03/11/18 03:53 37.0 C 93 H 17 121/71 96 03/11/18 00:10 37.0 C 74 17 130/77 94 03/10/18 17:21 36.6 C 83 18 128/63 92 03/10/18 16:18 36.5 C 86 16 129/72 97 03/10/18 15:21 36.8 C 80 18 177/58 H 93 03/10/18 14:52 36.6 C 82 18 123/74 95 03/10/18 14:20 36.8 C 78 15 124/73 98 03/10/18 14:00 72 12 130/80 97 03/10/18 13:50 72 12 123/73 94 03/10/18 13:40 36.4 C L 76 18 124/60 97 03/10/18 13:30 72 16 137/57 L 97 03/10/18 13:20 72 14 121/65 97 03/10/18 13:10 73 15 133/77 97 03/10/18 13:00 71 12 124/65 97 03/10/18 12:52 36.0 C L 75 12 118/57 L 97 Pain Intensity Bilateral Lower Back: Pain Intensity: 5 Back: Pain Intensity: 0 Notes Mental Status: alert / awake / arousable and participated in evaluation Patient Amnestic to Procedure: Yes Nausea / Vomiting: adequately controlled Pain: adequately controlled Airway Patency, RR, SpO2: stable & adequate BP & HR: stable & adequate Hydration State: stable & adequate Anesthetic Complications: no major complications apparent and Pt Satisfied with anesthetic care
--- NOTE | 2018-03-11 13:30 | Orthopedic Progress Note ---
Date of Service March 11, 2018 Assessment & Plan (1) Neurogenic claudication due to lumbar spinal stenosis: At this time we will continue physical therapy monitor his BLESSING output anticipate discharge home this weekend. Present on Admission?: Yes Subjective Back pain is controlled leg symptoms markedly improved. Physical Exam 2 Vital Signs (Past 24 Hours): Last Vital Signs Temp 37.1 C 03/11/18 12:59 Pulse 82 03/11/18 12:59 Resp 18 03/11/18 12:59 BP 120/58 L 03/11/18 12:59 Pulse Ox 99 03/11/18 12:59 Physical Exam: Patient appears comfortable. He is good strength testing.
[2018-03-11] MEDS: ATORVASTATIN 10 MG TAB PO SCH (21:05)
[2018-03-11] MEDS: CYANOCOBALAMIN 500 MCG TABLET (VITAMIN B-12) PO SCH (21:05)
[2018-03-11] MEDS: IRBESARTAN 150 MG TAB PO SCH (21:05)
[2018-03-11] MEDS: ASPIRIN 81 MG ECTAB PO SCH (21:05)
[2018-03-11] MEDS: DOCUSATE SODIUM/SENNA 50/8.6MG TAB PO SCH (21:06)
[2018-03-11] MEDS: FOLIC ACID 400 MCG TAB PO SCH (21:06)
[2018-03-11] MEDS: INSULIN DETEMIR FLEXPEN/FLEX TOUCH 100 UNITS/ML 3ML SQ SCH (21:11)
[2018-03-12] MEDS: POLYETHYLENE (MIRALAX) 17 GM PACK PO SCH ×5 (00:57→22:51)
[2018-03-12 06:39] LABS: Hematocrit (blood only) 32.7 % (42-52); Hemoglobin 10.7 g/dL (14.0-18.0); Mean Corpuscular Hgb Conc 32.7 g/dL (32-36); Mean Corpuscular Volume 93.4 fL (80-100); Mean Platelet Volume 9.6 fL (7.4-10.4); Platelet Count 147 K/uL (130-400); RDW Coefficient of Variation 13.7 % (11.5-14.5); RDW Standard Deviation 46.7 fL (36.4-46.3); White Blood Count 10.13 K/uL (4.8-10.8)
[2018-03-12 07:18] LABS: BUN Creatinine Ratio 20.7 (10-20); Calcium 8.4 mg/dl (8.5-10.1); Creatinine Clr Calc Pharmacy 51.5 ml/min; Est GFR (African American) 50.3; Est GFR (Non-African American) 43.4; Potassium 4.2 mmol/L (3.5-5.1)
[2018-03-12] MEDS: OXYCODONE HCL IR 5 MG TAB (IMMEDIATE RELEASE) PO PRN (08:09)
--- NOTE | 2018-03-12 08:44 | XRay Report ---
XR chest 1V portable CLINICAL HISTORY: Hypoxia. COMPARISON STUDY: Chest radiograph January 05, 2018. FINDINGS: Lung volumes are normal. There is no pneumothorax or pleural effusion. There is no consolid ation or evidence for pulmonary edema. There is mild cardiomegaly. IMPRESSION: 1. No acute cardiopulmonary findings. 2. Mild cardiomegaly. Electronically signed by: Henry Sinclair M.D. 03/12/2018 8:43 AM
[2018-03-12] MEDS: AMLODIPINE BESYLATE 5 MG TAB PO SCH (08:47)
[2018-03-12] MEDS: MULTIVITAMIN TAB PO SCH (08:47)
[2018-03-12] MEDS: hydroCHLOROthiazide 25 MG TAB PO SCH (08:47)
[2018-03-12] MEDS: METOPROLOL SUCC 50MG EXT REL TAB PO SCH (08:48)
[2018-03-12] MEDS: INSULIN ASPART 100 UNITS/ML 3 ML PEN SC SCH ×4 (08:49→21:08)
--- NOTE | 2018-03-12 11:33 | Orthopedic Progress Note ---
Date of Service March 12, 2018 Assessment & Plan (1) Neurogenic claudication due to lumbar spinal stenosis: This time we will continue physical therapy monitor his BLESSING output hopefully discharge home tomorrow. Present on Admission?: Yes Subjective Back pain is controlled leg symptoms markedly improved. Physical Exam 2 Vital Signs (Past 24 Hours): Last Vital Signs Temp 37.8 C H 03/12/18 11:17 Pulse 88 03/12/18 11:17 Resp 16 03/12/18 11:17 BP 152/70 H 03/12/18 11:17 Pulse Ox 94 03/12/18 11:17 Physical Exam: On exam is good strength testing appears comfortable.
--- NOTE | 2018-03-12 12:59 | Hospitalist Progress Note ---
Date of Service March 12, 2018 Assessment & Plan (1) Neurogenic claudication due to lumbar spinal stenosis: - S/P L2-L5 decompression/fusion on 03/10 and doing well post-operatively - Postoperative management as per orthopedics - Pain control, antiemetics, bowel regimen as per primary team's orders - EBL of 700 mL - Hgb remains stable (2) Postoperative fever: - Has had a low grade fever since 03/11 in afternoon but asymptomatic - At this time does not appear to be infectious - no leukocytosis - if continues or feels ill may need to consider imaging of the back or further evaluation as source - CXR without acute findings and normal lung volumes and using IS; is having constipation so maybe some decreased expansion due to this..causing some atelectasis? - Clinically do no suspect PE but may need to R/O if ongoing - Obtain UA to R/O UTI - Can use Tylenol PRN for fever - Reports he does snore and the first reading was at night - maybe some GERBER which may be exacerbated by opiate use? Present on Admission?: No (3) Hypoxia: - Asymptomatic - Suspect this is actually maybe some underlying GERBER which opiates may be causing some suppression of respirations and with distention from the abdomen some atelectasis may be contributing - Continue to wean O2 as tolerated to maintain saturations 90% or greater Present on Admission?: No (4) Hypertension: - BP controlled with only minimal highs - possible pain response - Amlodipine 10 mg daily; Toprol XL 100 mg daily - Resume Irbesartan 300 mg HS and HCTZ 25 mg daily (5) Diabetes mellitus, type 2: - A1c is 7.4 which is acceptable given patient age - Can continue Levemir 20 mg HS - Tolerating diet without issue - Will monitor BSGs ACHS and maintain SSI at this time -- Takes Glipizide 10 mg daily, Invokana 300 mg daily, and Metformin BID at home Present on Admission?: Yes (6) Peripheral neuropathy: - Stable - No current medical treatment - reports numbness/tingling has improved since surgery but does have some at baseline due to diabetic neuropathy Present on Admission?: Yes (7) CKD stage 3 due to type 2 diabetes mellitus: - Baseline appears to be around 1.4 - Continue ARB/HCTZ; Holding oral anti-diabetics - CBC/BMP in AM Present on Admission?: Yes (8) BPH (benign prostatic hyperplasia): - No current medical treatment - H/O cystoscopy which he reports was normal - Reports nocturia x 2 nightly on average - urinating without difficulty at this time Present on Admission?: Yes (9) CAD (coronary artery disease), [place] coronary artery: - Had abnormal stress test prior to surgery - cardiac cath revealed non- obstructive CAD -- notable for intermediate stenosis in the LAD at 65% from the proximal LAD to the mid LAD, 25% stenosis in the RCA, and 25% stenosis of the ostial to proximal circumflex. Fsr recommended maximization of beta oliver therapy prior to surgery and his metoprolol was increased to 100 mg daily. He is asymptomatic with this. - ASA 81 mg daily, statin therapy, and increased BB therapy Present on Admission?: Yes (10) Hyperlipidemia: - Stable - Continue atorvastatin 10 mg daily Present on Admission?: Yes (11) History of colon cancer: - Noted - H/O hemicolectomy and chemotherapy 2010 (current remission) Present on Admission?: No Subjective Reports feeling well today and pain continues to improve. Has had a low grade fever since yesterday afternoon but denies feeling fevered/ chilled/ill He also was noted to desat overnight and was noted this AM. CXR with good lung volumes and no acute findings; He is doing well with incentive spirometry No signs of infection at this time - no leukocystosis Clinically do not suspect PE He does report that he is known to snore especially when he is in deep sleep and maybe a component of GERBER and maybe exacerbated with opiate pain medication? Will continue to wean O2 as tolerated Constitutional: + fever (low grade however not symptomatic with it) and + fatigue; no chills Ear, Nose, Mouth, Throat: no sore throat, no hoarseness and no dysphagia Respiratory: + snoring; no cough, no chest congestion, no dyspnea and no wheezing Cardiovascular: no chest pain, no orthopnea, no palpitations, no edema and no calf pain Gastrointestinal: + constipation; no abdominal pain, no nausea, no vomiting and no diarrhea/loose stools Genitourinary (Male): no dysuria Musculoskeletal: + back pain (improving with pain regimen) Integumentary: no rash Physical Exam 2 Vital Signs (Past 24 Hours): Last Vital Signs Temp 37.8 C H 03/12/18 11:17 Pulse 88 03/12/18 11:17 Resp 16 03/12/18 11:17 BP 152/70 H 03/12/18 11:17 Pulse Ox 94 03/12/18 11:17 Constitutional: well developed and well nourished; no acute distress and not ill appearing Eyes: + anicteric sclerae ENMT: Ears: no hearing impairment Neck: trachea midline Respiratory: normal respiratory effort, lungs clear to auscultation Cardiovascular: Rate/Rhythm: regular rate and regular rhythm Heart Sounds: no murmur Gastrointestinal (Abdomen): Inspection/Auscultation: normal bowel sounds Percussion/Palpation: abdomen soft; abdomen nontender Musculoskeletal: Head/Neck/Chest: normocephalic and head atraumatic Dressing applied to surgical site which was not removed with BLESSING drain present; dressing C/D/I; surrounding skin without erythema/warmth/tenderness to touch; b/ l lower extremities with SIRENA stockings present without edema, tenderness, warmth Skin: no rashes, warm and dry Neurologic: moves all extremities Psychiatric: A+Ox3, euthymic affect _ (1) Hypertension Hypertension type: essential hypertension Qualified Code(s): I10 - Essential (primary) hypertension (2) Diabetes mellitus, type 2 Diabetes mellitus meterman insulin use: with meterman use Diabetes mellitus complication status: with kidney complications Diabetes mellitus complication detail: with chronic kidney disease Diabetic retinopathy severity : Proliferative retinopathy type: Diabetes mellitus macular edema: Laterality: Chronic kidney disease stage: stage 3 (moderate) Qualified Code(s ): E11.22 - Type 2 diabetes mellitus with diabetic chronic kidney disease; N18.3 - Chronic kidney disease, stage 3 (moderate); 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 transplanted heart: [place] heart Associated angina: without angina Qualified Code(s): I25.10 - Atherosclerotic heart disease of [place] coronary artery without angina pectoris (4) Hyperlipidemia Hyperlipidemia type: unspecified Qualified Code(s): E78.5 - Hyperlipidemia, unspecified
--- NOTE | 2018-03-12 18:26 | Ultrasound Report ---
BILATERAL LOWER EXTREMITY VENOUS DOPPLER HISTORY: Acute pain and swelling of the bilateral lower cavities R/O DVT COMPARISON STUDY: None. FINDINGS: There is normal compressibility, flow, and augmentation within the bilateral lower extremit y deep venous systems. IMPRESSION: No sonographic evidence of deep venous thrombosis within the right or left lower extremity. Electronically signed by: Jose Diaz M.D. 03/12/2018 6:24 PM
[2018-03-12 20:49] LABS: Appearance Urine Clear (Clear); Bilirubin Urine Negative (Negative); Color Urine Yellow; Glucose Urine UA 3+ (Negative); Ketones Urine Negative (Negative); Leukocyte Esterase Urine Negative (Negative); Nitrite Urine Negative (Negative); Protein Urine Negative (Negative); Specific Gravity Urine 1.016 (1.000-1.030); Urobilinogen Urine Negative (Negative); pH Urine 5.5 (4.5-7.5)
[2018-03-12] MEDS: FOLIC ACID 400 MCG TAB PO SCH (21:03)
[2018-03-12] MEDS: DOCUSATE SODIUM/SENNA 50/8.6MG TAB PO SCH (21:03)
[2018-03-12] MEDS: ATORVASTATIN 10 MG TAB PO SCH (21:03)
[2018-03-12] MEDS: IRBESARTAN 150 MG TAB PO SCH (21:03)
[2018-03-12] MEDS: CYANOCOBALAMIN 500 MCG TABLET (VITAMIN B-12) PO SCH (21:03)
[2018-03-12] MEDS: ASPIRIN 81 MG ECTAB PO SCH (21:05)
[2018-03-12] MEDS: INSULIN DETEMIR FLEXPEN/FLEX TOUCH 100 UNITS/ML 3ML SQ SCH (21:08)
[2018-03-12 23:20] VITALS: O2SAT 94
[2018-03-13 02:59] VITALS: TEMP 99.3
[2018-03-13 05:59] LABS: Hematocrit (blood only) 33.6 % (42-52); Hemoglobin 10.7 g/dL (14.0-18.0); Mean Corpuscular Hgb Conc 31.8 g/dL (32-36); Mean Corpuscular Volume 92.8 fL (80-100); Mean Platelet Volume 9.9 fL (7.4-10.4); Platelet Count 163 K/uL (130-400); RDW Coefficient of Variation 13.2 % (11.5-14.5); Red Blood Count 3.62 M/uL (4.7-6.1)
[2018-03-13 06:33] LABS: BUN Creatinine Ratio 21.5 (10-20); Calcium 8.5 mg/dl (8.5-10.1); Creatinine Clr Calc Pharmacy 65.2 ml/min; Est GFR (African American) 66.9; Est GFR (Non-African American) 57.7; Potassium 4.1 mmol/L (3.5-5.1)
[2018-03-13] MEDS: OXYCODONE HCL IR 5 MG TAB (IMMEDIATE RELEASE) PO PRN ×2 (06:49→11:27)
[2018-03-13 06:58] VITALS: BP 168/70
[2018-03-13] MEDS: INSULIN ASPART 100 UNITS/ML 3 ML PEN SC SCH (08:45)
[2018-03-13] MEDS: MULTIVITAMIN TAB PO SCH (08:50)
[2018-03-13] MEDS: AMLODIPINE BESYLATE 5 MG TAB PO SCH (08:50)
[2018-03-13] MEDS: hydroCHLOROthiazide 25 MG TAB PO SCH (08:51)
[2018-03-13] MEDS: METOPROLOL SUCC 50MG EXT REL TAB PO SCH (08:51)
--- NOTE | 2018-03-13 10:18 | Discharge Summary ---
Date of Service March 13, 2018 Admission HPI Per Admitting Provider This is a 72-year-old male presents with chronic persistent back and leg pain. After failing extensive course of nonoperative care is here for surgical intervention. Principal Diagnosis Lumbar spinal stenosis with neurogenic claudication Discharge Data Allergies Allergy/AdvReac Type Severity Reaction Status Date / Time No Known Allergies Allergy Verified 03/10/18 08:33 Consultations 03/10/18 14:22 Consult Case Management - Discharge Planning Routine Consult Hospitalist Routine Procedures Performed Operation Date: 01/15/18 11:55 <No data on this case meets the specified criteria> Operation Date: 03/10/18 10:05 Actual Procedures p L2-L3, L3-L4, L4-L5 Decompression and Fusion, L3-L4, L4-L5 Interbody Fusion; Application of Bone Morphogenetic Protein and Osteoamp(Not Applicable) - Pineda Amanda DO Ordered Studies 03/10/18 10:05 FL fluoroscopy <1hr Routine FL lumbar spine 2-3V Routine 03/12/18 16:53 US venous doppler LE BI Routine Hospital Course (1) Neurogenic claudication due to lumbar spinal stenosis: Patient underwent lumbar decompression fusion tolerated as well as taken the orthopedic floor postoperative postop day #1 he was up and ambulate and progressed nicely through postop day #2 BLESSING drain decreasing appropriately. Subsequent to discharge home on postop day #3. Discharge orders and instructions can be found chart for further review. Total Time Total Time Spent Total Time Spent (In Minutes): Not applicable Discharge Plan Discharge Items Patient Disposition: Home - Self-Care Reason For Visit: Spinal Stenosis Discharge Diagnosis: Lumbar spinal stenosis with neurogenic claudication Discharge Goals: Decrease discomfort Activity: Per 'Additional Instructions' section Non-emergency contact: Primary Care Provider Call non-emergency contact if: you have any medication questions Follow-up/Referrals: Atiya Lopez MD [Primary Care Provider] - Diet: Regular Addtl Provider Instructions: ACTIVITY RECOMMENDATIONS: SELF CARE INSTRUCTIONS AFTER THORACIC/LUMBAR FUSIONS 1. You may walk to your tolerance. It is good exercise for your legs and back. Expect some back and intermittent leg aches and pains. 2. You may perform "counter-top" level activities (make a sandwich, shirley with a project, etc.). 3. No bending or lifting of more than 10 pounds or back twisting of any nature (roll like a log when turning in bed). 4. You may ride in a car for 20-30 minutes at a time. No driving until after your first visit with your doctor. 5. Frequent changes of position and restricting sitting to 30 minutes at a time will help limit the amount of back spasms and stiffness you may experience. 6. You may discontinue the use of ambulatory aids (cane, crutches, etc.) once your strength and confidence allow. 7. 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 Do not take a tub bath, sit in a hot tub or go into a swimming pool until after your first recheck in the office. SPECIAL CARE INSTRUCTIONS: VERY IMPORTANT TO READ AND REVIEW A. Your surgical incision has been closed with a cosmetic suture under the skin that will dissolve in about 6 weeks. In 14 days, you can use a pair of clean scissors and cut the suture that is left outside of the skin at the ends of your incision. 1. The small skin tapes can be removed 7 days after surgery if they have not fallen off by that point. 2. You may keep the wound open to air as much as possible to promote healing after post-op day number 5 unless told otherwise by your doctor. 3. If you think the wound looks like it is becoming infected (redness or worsening drainage) and/or you are experiencing fever, chill or worsening back pain and muscle spasms, contact the office so that we may evaluate you as soon as possible. B. Complications are uncommon, but please contact us if you have any signs or symptoms of: 1. wound infection (fever higher than 102.5 degrees F, redness, separation of wound, drainage, or increasing pain from the incision) 2. blood clots in legs (pain, swelling, redness and warmth in legs) 3. urinary tract infection (fever higher than 102.5 degrees F, burning upon urination or increased frequency of urination) 4. nerve problems (inability to walk on your toes or heels, numbness, loss of bowel or bladder control) 5. any other symptoms that concern you C. Please call the office at if you have any concerns or questions about your operation or recovery. D. No smoking! Smoking drastically decreases the chance of a solid fusion. E. Do not take any anti-inflammatory medications (Indocin, Advil, Motrin, Aspirin, Naprosyn, etc.) as these may inhibit the chance of a solid fusion. Tylenol is okay to take for pain. MANAGING PAIN AFTER SPINAL SURGERY 1. Narcotic medication is intended for short-term use and will be provided for surgical pain. Surgical pain usually lasts for a period of 4-6 weeks. Narcotic medication includes Percocet, Vicodin, Darvocet, Tylenol #3 or Lortab. 2. Longer-term pain is more appropriately treated with non-narcotic medication such as Tylenol ES. 3. Muscle spasm is not appropriately treated with narcotics. Muscle relaxers such as Soma, Flexeril or Skelaxin can be used along with Tylenol ES. 4. Remember that we all live with some "aches and pains". This is not unusual or uncommon after an injury or as we get older. a. Back pain is expected and may include muscle spasms for 4 to 6 weeks after surgery. The pain should gradually improve. If the pain worsens for no apparent reason, please contact the office. b. Intermittent leg pain may also be experienced and should not be concerned about unless it worsens for no apparent reason. If so, please contact the office. 5. We will provide appropriate medication within the normal guidelines of their prescribed use. We will also be very cautious and aware of potential abuse and extended duration of patients' medication needs. a. Pain medications are for your comfort and to assist with sleep and rest so that the tissue can heal. They are not provided in order to return to normal activity and should not be used through the day. To do so or worsening pain at night can result from ongoing tissue damage and development of tolerance to the prescribed medicine. 6. Please allow 2-3 days to process refills. Prescriptions will not be mailed but must be picked up at the office. FOLLOW UP VISIT: Keep your scheduled follow-up appointment. Any questions, please call the office at . Prescriptions: New tramadol 50 mg Tablet 50 mg PO Q4H PRN (Reason: Pain, Moderate) Qty: 30 RF: 0 oxycodone 5 mg Tablet 5 mg PO Q4H PRN (Reason: Pain, Severe) Qty: 30 RF: 0 Continue multivitamin [Multiple Vitamins] Tablet 1 tab PO QAM RF: 0 atorvastatin 10 mg Tablet 10 mg PO QPM RF: 0 glipizide 10 mg Tablet 10 mg PO QAM RF: 0 aspirin [Aspir-81] 81 mg Tablet,Delayed Release (Dr/Ec) 81 mg PO QPM RF: 0 amlodipine 10 mg Tablet 10 mg PO QAM RF: 0 metformin 1,000 mg Tablet 1,000 mg PO BID RF: 0 hydrochlorothiazide 25 mg Tablet 25 mg PO QAM RF: 0 ergocalciferol (vitamin D2) [Vitamin D2] 50,000 unit Capsule 50,000 unit PO UD RF: 0 irbesartan 300 mg Tablet 300 mg PO HS RF: 0 insulin detemir U-100 100 unit/mL Solution 20 unit SUBCUT HS RF: 0 vitamin [id number] acid 500-400 mcg Tablet 1 dose PO QPM RF: 0 canagliflozin [Invokana] 300 mg Tablet 300 mg PO QAM RF: 0 metoprolol succinate 50 mg Capsule,Sprinkle,Er 24hr 100 mg PO QAM RF: 0 Visit Report Forms: [facility] Portal Stand-Alone Forms: [facility] Discharge Orders: Discharge Order (Routine); Ordered 03/13/18 Ordered By: Pineda Amanda Admission Data Admit Date/Time: 03/10/18 12:48 Attending Provider: Pineda Amanda Admit Provider: Pineda Amanda Primary Care Provider: Atiya Lopez Other Providers: Latisha Eden Service: Surgical Services
[2018-03-13 11:12] VITALS: PULSE 97
--- NOTE | 2018-03-13 12:46 | Hospitalist Progress Note ---
Date of Service March 13, 2018 Assessment & Plan (1) Neurogenic claudication due to lumbar spinal stenosis: - S/P L2-L5 decompression/fusion on 03/10 and doing well post-operatively - Postoperative management as per orthopedics - Pain control, antiemetics, bowel regimen as per primary team's orders - EBL of 700 mL - Hgb remains stable (2) Postoperative fever: - Has had a low grade fever for a day but has since resolved and not ill appearing - At this time does not appear to be infectious - no leukocytosis and not feeling unwell - CXR without acute findings and normal lung volumes and using IS; is having constipation so maybe some decreased expansion due to this..causing some atelectasis? - Clinically do no suspect PE and did R/O DVT in the lower legs - UA unremarkable - Can use Tylenol PRN for fever - Reports he does snore and the first reading was at night - maybe some GERBER which may be exacerbated by opiate use? (3) Hypoxia: - Asymptomatic - Suspect this is actually maybe some underlying GERBER which opiates may be causing some suppression of respirations and with distention from the abdomen/ constipation some atelectasis may be contributing - Has been maintaining appropriate O2 saturations on RA since yesterday afternoon (4) Hypertension: - BP controlled with only minimal highs - possible pain response - Amlodipine 10 mg daily; Toprol XL 100 mg daily - Resume Irbesartan 300 mg HS and HCTZ 25 mg daily (5) Diabetes mellitus, type 2: - A1c is 7.4 which is acceptable given patient age - Can continue Levemir 20 mg HS and Glipizide 10 mg daily, Invokana 300 mg daily , and Metformin BID at home (6) Peripheral neuropathy: - Stable - No current medical treatment - reports numbness/tingling has improved since surgery but does have some at baseline due to diabetic neuropathy (7) CKD stage 3 due to type 2 diabetes mellitus: - Baseline appears to be around 1.4 (8) BPH (benign prostatic hyperplasia): - No current medical treatment - H/O cystoscopy which he reports was normal - Reports nocturia x 2 nightly on average - urinating without difficulty at this time (9) CAD (coronary artery disease), [place] coronary artery: - Had abnormal stress test prior to surgery - cardiac cath revealed non- obstructive CAD -- notable for intermediate stenosis in the LAD at 65% from the proximal LAD to the mid LAD, 25% stenosis in the RCA, and 25% stenosis of the ostial to proximal circumflex. Hide Tanner recommended maximization of beta oliver therapy prior to surgery and his metoprolol was increased to 100 mg daily. He is asymptomatic with this. - ASA 81 mg daily, statin therapy, and increased BB therapy (10) Hyperlipidemia: - Stable - Continue atorvastatin 10 mg daily (11) History of colon cancer: - Noted - H/O hemicolectomy and chemotherapy 2010 (current remission) Subjective Reports feeling well today. Is no longer have low grade fevers and no further hypoxia. Suspect this may be a result of undiagnosed sleep apnea? Maybe exacerbated by pain medication use. He is completely asymptomatic. Did perform U/S of legs to R/O DVT given his renal function and no evidence of DVT. Clinically PE was unlikely. Recommended to get checked out though if he would develop further fever. Constitutional: no fever, no chills, no fatigue and no weakness Respiratory: no cough and no dyspnea Cardiovascular: no chest pain, no orthopnea and no edema Gastrointestinal: no abdominal pain, no nausea, no vomiting, no constipation and no diarrhea/loose stools Genitourinary (Male): no dysuria Musculoskeletal: + back pain (stable on pain medication) Integumentary: no rash Neurologic: no tingling and no numbness Physical Exam 2 Vital Signs (Past 24 Hours): Last Vital Signs Temp 37.4 C 03/13/18 11:07 Pulse 97 H 03/13/18 11:07 Resp 18 03/13/18 11:07 BP 168/70 H 03/13/18 11:07 Pulse Ox 94 03/13/18 11:07 Constitutional: well developed and well nourished; no acute distress and not ill appearing Eyes: + anicteric sclerae ENMT: Ears: no hearing impairment Neck: trachea midline Respiratory: normal respiratory effort, lungs clear to auscultation Cardiovascular: Rate/Rhythm: regular rate and regular rhythm Heart Sounds: no murmur Gastrointestinal (Abdomen): Inspection/Auscultation: normal bowel sounds Percussion/Palpation: abdomen soft; abdomen nontender Musculoskeletal: Head/Neck/Chest: normocephalic and head atraumatic Skin: no rashes, warm and dry Neurologic: moves all extremities Psychiatric: A+Ox3, euthymic affect _ (1) Hypertension Hypertension type: essential hypertension Qualified Code(s): I10 - Essential (primary) hypertension (2) Diabetes mellitus, type 2 Diabetes mellitus group 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 transplanted heart: [place] heart Associated angina: without angina Qualified Code(s): I25.10 - Atherosclerotic heart disease of [place] coronary artery without angina pectoris (4) Hyperlipidemia Hyperlipidemia type: unspecified Qualified Code(s): E78.5 - Hyperlipidemia, unspecified
[2018-03-14] MEDS ORDERED: ERGOCALCIFEROL 50,000 UNITS CAP PO SCH (09:00)
== END 2018-03-13 11:49 | disposition home or self-care (01) | DRG 455 ==
LOC: ASU 07:57 → 3E 12:48